=== PATIENT | male | born 1985 | race Native Hawaiian/Other Pacific Islander ===

== ENCOUNTER 2018-01-28 19:20 | Emergency (ER) | payer OTHER ==
[~2018-01-28] VITALS: Ht 152.4 cm; Wt 54.4 kg
[2018-01-28 21:11] LABS: PLATELET COUNT 216 K/uL (142-355)
[2018-01-28 21:16] LABS: POTASSIUM 3.7 mmol/L (3.6-5.2)
[2018-01-28 22:27] VITALS: BP 122/68; TEMP 97.2
== END 2018-01-28 22:27 | disposition home or self-care (01) ==
LOC: ED 19:20
DX: J06.9 Acute upper respiratory infection, unspecified (principal)
CPT/HCPCS: 80053; 81000; 85027; 87502; 87651; 99283

== ENCOUNTER 2019-12-30 21:00 | Emergency (ER) | payer OTHER ==
[~2019-12-30] VITALS: Ht 152.4 cm; Wt 54.4 kg
[2019-12-30 21:49] LABS: PLATELET COUNT 264 K/uL (142-355)
[2019-12-30 21:56] LABS: POTASSIUM 3.8 mmol/L (3.6-5.2)
[2019-12-30 22:50] VITALS: BP 120/72; TEMP 98.5
== END 2019-12-30 22:50 | disposition home or self-care (01) ==
LOC: ED 21:00
PROVIDERS: Hospitalist
DX: T63.391A Toxic effect of venom of other spider, accidental (unintentional), initial encounter (principal); L02.01 Cutaneous abscess of face; Y92.89 Other specified places as the place of occurrence of the external cause
CPT/HCPCS: 80048; 83605; 85027; 96365; 96375; 99284; J1885; J2930; J3370

== ENCOUNTER 2020-03-07 17:15 | Emergency (ER) | payer OTHER ==
[~2020-03-07] VITALS: Ht 154.9 cm; Wt 49.9 kg
[2020-03-07 17:23] VITALS: TEMP 97.6
[2020-03-07 17:44] VITALS: BP 118/62
== END 2020-03-07 17:45 | disposition home or self-care (01) ==
LOC: ED 17:15
DX: S60.561A Insect bite (nonvenomous) of right hand, initial encounter (principal); L53.8 Other specified erythematous conditions; W57.XXXA Bitten or stung by nonvenomous insect and other nonvenomous arthropods, initial encounter; Y92.89 Other specified places as the place of occurrence of the external cause
CPT/HCPCS: 99281

== ENCOUNTER 2020-03-13 16:56 | Emergency (ER) | payer OTHER ==
[~2020-03-13] VITALS: Ht 154.9 cm; Wt 49.9 kg
[2020-03-13 17:03] VITALS: BP 102/55; TEMP 97.3
== END 2020-03-13 17:58 | disposition home or self-care (01) ==
LOC: ED 16:56
DX: T63.391A Toxic effect of venom of other spider, accidental (unintentional), initial encounter (principal); L02.511 Cutaneous abscess of right hand
CPT/HCPCS: 96372; 99283; J0696; J1100

== ENCOUNTER 2020-05-07 17:17 | Emergency (ER) | payer OTHER ==
[~2020-05-07] VITALS: Ht 154.9 cm; Wt 49.9 kg
[2020-05-07 19:50] VITALS: BP 133/56; TEMP 97.5
== END 2020-05-07 19:50 | disposition home or self-care (01) ==
LOC: ED 17:17
PROC: 08C9XZZ Extirpation of Matter from Left Cornea, External Approach (ICD-10-PCS; principal; 2020-05-07)
DX: T15.02XA Foreign body in cornea, left eye, initial encounter (principal)
CPT/HCPCS: 99283